=== PATIENT | female | born 1995 ===

== ENCOUNTER 2017-05-26 21:03 | Emergency (ER) | payer SELFPAY ==
[~2017-05-26] VITALS: Ht 165.1 cm; Wt 84.5 kg
[2017-05-26 21:44] VITALS: Ht 165.1 cm; Wt 84.5 kg
[2017-05-26] MEDS ORDERED: IBUP-1542 PO (23:07)
[2017-05-26] MEDS ORDERED: ALBU8.5H3 INH (23:07)
[2017-05-26] MEDS ORDERED: GUAI473L22 PO (23:07)
[2017-05-26] MEDS ORDERED: CETI10CA PO (23:07)
[2017-05-26 23:19] VITALS: BP 117/78; PULSE 71; RESP 18; TEMP 98
--- NOTE | 2017-05-26 23:25 | ERD ---
ER Documentation Chief Complaint Date/Time DATE: 05/26/17 TIME: 23:23 Chief Complaint sore throat and congestion x 1 week, taking Dayquil HPI 22-year-old female presents here in emergency department for complaints of cough runny nose nasal congestion sore throat for 1 week. Patient has been having dry cough, does not cough up any phlegm or blood. Patient does not have any shortness of breath but has episodes of wheezing at times. Patient took DayQuil at home which helped some of the symptoms. Patient does not have any sick contacts. Patient denies any dyspnea exertion or dyspnea on lying down. ROS All systems reviewed and are negative except as per history of present illness. Medications Home Meds Active Scripts Ibuprofen* (Motrin*) 600 Mg Tab, 600 MG PO Q6H Y for PAIN AND OR ELEVATED TEMP, #30 TAB Prov:LEO CHU NP 05/26/17 Albuterol Sulfate* (Proair HFA*) 8.5 Gm Hfa.aer.ad, 2 PUFF INH Q4H Y for WHEEZING AND SOB, #1 INHALER Prov:LEO CHU NP 05/26/17 Cetirizine Hcl* (Zyrtec*) 10 Mg Capsule, 10 MG PO DAILY for 30 Days, #10 TAB.CHEW Prov:LEO CHU NP 05/26/17 Guaifenesin-Codeine Phosphate* (Guaifenesin* AC Cough Syrup) 473 Ml Liquid, 10 ML PO Q4H Y for COUGH, #120 ML Prov:LEO CHU NP 05/26/17 Allergies Allergies: Coded Allergies: No Known Allergy (Unverified , 05/26/17) PMhx/Soc Medical and Surgical Hx: pt denies Medical Hx, pt denies Surgical Hx History of Surgery: No Anesthesia Reaction: No Hx Neurological Disorder: No Hx Respiratory Disorders: No Hx Cardiac Disorders: No Hx Psychiatric Problems: No Hx Miscellaneous Medical Probl: No Hx Alcohol Use: No Hx Substance Use: No Smoking Status: Never smoker FmHx Family History: No coronary disease, No diabetes, No other Physical Exam Vitals Vital Signs Date Time Temp Pulse Resp B/P Pulse Ox O2 Delivery O2 Flow Rate FiO2 05/26/17 23:19 98.0 71 18 117/78 97 Room Air 05/26/17 21:44 98.6 94 18 132/80 100 Physical Exam GENERAL: The patient is well developed and appropriate for usual state of health, in no apparent distress. HEENT: Atraumatic. Ears: Normal tympanic membrane, no erythema or bulging. No ear canal swelling. No ear discharge. Nose: Erythematous nasal turbinates with clear nasal discharge. Throat: oropharynx erythematous with postnasal drip. No lymphadenopathy. CHEST: Clear to auscultation bilaterally. There are no rales, wheezes or rhonchi. HEART: Regular rate and rhythm. No murmurs, clicks, rubs or gallops. No S3 or S4. ABDOMEN: Soft, nontender and nondistended. Good bowel sounds. No rebound or guarding. No gross peritonitis. No gross organomegaly or masses. No Navarro sign or McBurney point tenderness. BACK: No midline or flank tenderness. EXTREMITIES: Equal pulses bilaterally. There is no peripheral clubbing, cyanosis or edema. No focal swelling or erythema. Full range of motion. Grossly neurovascularly intact. NEURO: Alert and oriented. Cranial nerves 2-12 intact. Motor strength in all 4 extremities with 5/5 strength. Sensation grossly intact. Normal speech and gait. SKIN: There is no apparent rash or petechia. The skin is warm and dry. HEMATOLOGIC AND LYMPHATIC: There is no evidence of excessive bruising or lymphedema. No gross cervical, axillary, or inguinal lymphadenopathy. Procedures/MDM Medical Decision Making: Patient symptoms are most likely consistent with acute bronchitis, which viral in origin. There is low suspicion for Pneumonia at this time since patients lungs sounds are clear, patient O2 saturation is normal and patient doesnt show any respiratory distress. Patients chest xray doesnt show infiltrates or any other cardiopulmonary emergencies at this time. There is low suspicion for other cardiopulmonary emergencies at this time such as CHF, Pulmonary Embolism, Pneumothorax, or any other cardiopulmonary emergencies at this time. There is low suspicion for sepsis. Patient appears well and is hemodynamically stable. Fever is controlled with medicines. Disposition: Home. Condition: Stable Prescriptions: Guaifenesin with codeine ibuprofen albuterol Zyrtec Instructions: Patient is advised to take medications as prescribed. Patient is advised to rest. Patient advised to increase fluid intake, do humidifier at home and if possible, do salt water gargles. Patient is advised that if symptoms are worse, shortness of breath, uncontrolled fever, stridor, vomiting, worst signs and symptoms to return to emergency department immediately. Otherwise, patient is advised to follow up with primary doctor in 5-7 days. Departure Diagnosis: Primary Impression: Acute bronchitis Bronchitis organism: unspecified organism Qualified Code: J20.9 - Acute bronchitis, unspecified organism Condition: Stable Patient Instructions: Bronchitis With Wheezing (Adult) LEO CHU NP May 26, 2017 23:25
== END 2017-05-27 00:23 | disposition home or self-care (01) ==
LOC: FTE 21:03
DX: J20.9 Acute bronchitis, unspecified (principal)
CPT/HCPCS: 99283